=== PATIENT | male | born 1990 | race African-American/Black ===

== ENCOUNTER 2018-05-17 18:21 | Emergency (ER) | payer SELFPAY ==
[2018-05-17 18:21] VITALS: BP 192/123; PULSE 93; RESP 16; TEMP 36.9; O2SAT 98; BMI 44.0
--- NOTE | 2018-05-17 18:52 | ED.VISSUMM ---
- ER Visit Summary Date of Service: 05/17/18 Chief Complaint: Sore throat History of Present Illness: The patient is a 27 M presenting for evaluation secondary to sore throat. Patient reports over the course of the last 2 days he has been dealing with sore throat. Patient states that he has pain on swallowing as well as right ear pain. Denies any cough nausea vomiting diarrhea or presence of fevers. Physical Examination: Vital signs notable for blood pressure 192/123. Well-nourished male no acute distress. Head normocephalic. Right ear shows a serous effusion without any evidence of purulent otitis. Oral exam shows bilateral tonsillar enlargement, erythema, exudates approximately 3+. Uvula is midline. Patient complains of pain being more so on the right of the throat than the left but physical exam does not exhibit any evidence of asymmetry. Neck is supple. Heart is regular lungs are clear. Test Results: None indicated Emergency Department Course and Treatment: Patient presented for evaluation secondary to sore throat. Patient was significantly concerned about the potential cost he could incur from this visit. He does not seem to have any evidence of peritonsillar or retropharyngeal abscess, I do not believe that any imaging is indicated. And of the interest of minimizing the patient's workup I will forego a rapid strep test and treat the patient. Patient was treated with a dose of Decadron and will be started on a course of penicillin. Patient was informed that he needs to follow-up with primary care for his hypertension. He is currently asymptomatic and there is no indication for workup. Disposition: Discharge Impression: 1. Pharyngitis 2. Hypertension This note was generated with [employer] dictation software. It may contain incorrect words, spelling, and punctuation that were not noted in review of the chart prior to signing ED Disposition - Plan for ED Patient: Disposition: Home or Assisted Living Chief Complaint: Sore Throat Diagnosis: Pharyngitis, HTN (hypertension) Instructions: ED Pharyngitis Viral Prescriptions: Penicillin V Potassium 500 mg PO 4X/DAY #40 tab Referrals: Jaja Quinn [NON-STAFF] -
[2018-05-17] MEDS: Penicillin Vk 250 MG Tablet 500 MG PO (18:57)
--- NOTE | 2018-05-17 18:57 | ED.DCSUM_ITS ---
- ER Visit Summary Date of Service: 05/17/18 Chief Complaint: Sore throat History of Present Illness: The patient is a 27 M presenting for evaluation secondary to sore throat. Patient reports over the course of the last 2 days he has been dealing with sore throat. Patient states that he has pain on sw[place] wing as well as right ear pain. Denies any cough nausea vomiting diarrhea or presence of fevers. Physical Examination: Vital signs notable for blood pressure 192/123. Well-nour ished male no acute distress. Head normocephalic. Right ear shows a serous effusion without any evidence of purulent otitis. Oral exam shows bilateral tonsillar enlargement, erythema, exudates approximately 3+. Uvula is midline. Patient complains of pain being more so on the right of the throat than the left but physical exam does not exhibit any evidence of asymmetry. Neck is supple. Heart is regular lungs are clear. Test Results: None indicated Emergency Department Course and Treatment: Patient presented for evaluation s econdary to sore throat. Patient was significantly concerned about the potential cost he could incur from this visit. He does not seem to have any evidence of peritonsillar or retropharyngeal abscess, I do not believe that any imaging is indicated. And of the interest of minimizing the patient's workup I will forego a rapid strep test and treat the patient. Patient was treated with a dose of Decadron and will be started on a course of penicillin. Patient was informed that he needs to follow-up with primary care for his hypertension. He is currently asymptomatic and there is no indication for workup. Disposition: Discharge Impression: 1. Pharyngitis 2. Hypertension This note was generated with [employer] dictation software. It may contain incorrect words, spelling, and punctuation that were not noted in review of the chart prior to signing ED Disposition - Plan for ED Patient: Disposition: Home or Assisted Living Chief Complaint: Sore Throat Diagnosis: Pharyngitis, HTN (hypertension) Instructions: ED Pharyngitis Viral Prescriptions: Penicillin V Potassium 500 mg PO 4X/DAY #40 tab Referrals: Jaja Quinn [NON-STAFF] -
[2018-05-17 19:03] VITALS: BP 175/111
== END 2018-05-17 20:45 | disposition home or self-care (01) ==
PROVIDERS: Emergency Provider Emergency Medicine
DX: J02.9 Acute pharyngitis, unspecified (principal); I10 Essential (primary) hypertension
CPT/HCPCS: 99283